=== PATIENT | male | born 1965 | race Caucasian/White ===

== ENCOUNTER → 2021-12-13 07:58 | Outpatient (BNVA) | payer BC, SELFPAY | PROVIDERS: Family Provider Family Medicine; PCP Family Medicine Adult Medicine; Visit Provider Family Medicine Adult Medicine | DX: M10.9 Gout, unspecified (principal); M79.671 Pain in right foot; E66.01 Morbid (severe) obesity due to excess calories; R03.0 Elevated blood-pressure reading, without diagnosis of hypertension | CPT/HCPCS: 80053; 84550 ==

== ENCOUNTER → 2023-02-26 08:27 | Outpatient (BNVA) | payer OTHER, SELFPAY | PROVIDERS: Family Provider Family Medicine; PCP Family Medicine Adult Medicine; Visit Provider Family Medicine Adult Medicine | DX: I95.1 Orthostatic hypotension (principal) | CPT/HCPCS: 80061 ==

== ENCOUNTER 2023-02-27 07:50 | Outpatient (CLI) | payer OTHER, SELFPAY ==
--- NOTE | 2023-02-27 08:00 | USCV_ITS ---
Olman Starr Age: 57 Gender: M : 1965 Exam Date: 02/27/2023 08:24 Ordering Phys: Pedro Cabrera MD Technologist: GUILLERMO Exam Location: [facility] – [place], [place] Indication: Vertigo after standing, climbing, exertion Risk Factors: Previous Vascular Surgery: Right Brachial BP: / Left Brachial BP: / Right Left Velocity (cm/s) Spectral Plaque Velocity (cm/s) Spectral Plaque Syst/Diast Broadening Syst/Diast Broadening 100.60/16.80 Prox CCA 98.30 / 22.20 98.60/ 18.70 Mid CCA 94.00 / 23.10 84.80/ 24.60 Distal CCA 82.00 / 23.10 77.70/ 17.40 Prox ICA 48.90 / 19.90 74.60/ 21.50 Mid ICA 65.20 / 22.90 64.40/ 24.50 Distal ICA 62.80 / 27.10 137.50 ECA 85.40 0.77 ICA/CCA 0.66 Antegrade Vertebral Antegrade 59.00/ 15.50 cm/s 44.90/ 15.00 cm/s Tri Subclavian Tri 90.40 79.90 CONCLUSIONS Right ICA stenosis <50%. Left ICA stenosis <50%. Normal antegrade Doppler flow noted in the right vertebral artery. Normal antegrade Doppler flow noted in the left vertebral artery. Zachary Cobos MD (Electronically Signed) Final Date: 27 Feb 2023 13:01 S
== END 2023-02-27 07:51 | disposition home or self-care (01) ==
PROVIDERS: PCP Family Medicine Adult Medicine; Visit Provider Family Medicine Adult Medicine
DX: I65.23 Occlusion and stenosis of bilateral carotid arteries (principal)
CPT/HCPCS: 93880

== ENCOUNTER → 2024-08-17 13:15 | Outpatient (BNVA) | payer OTHER, SELFPAY | PROVIDERS: PCP Family Medicine Adult Medicine | DX: E66.01 Morbid (severe) obesity due to excess calories (principal) | CPT/HCPCS: 80053; 83880; 85025 ==

== ENCOUNTER → 2025-01-14 09:13 | Outpatient (BNVA) | payer OTHER, SELFPAY | PROVIDERS: PCP Family Medicine; Visit Provider Family Medicine | DX: E78.5 Hyperlipidemia, unspecified (principal); R73.9 Hyperglycemia, unspecified; R35.1 Nocturia; R68.82 Decreased libido | CPT/HCPCS: 80053; 80061; 83036; 84153; 84403 ==

== ENCOUNTER 2025-03-09 13:04 | Outpatient (CLI) | payer OTHER, SELFPAY | END 2025-03-09 13:05 | disposition home or self-care (01) | LOC: SLEEP 13:05 | PROVIDERS: PCP Family Medicine; Referring Provider Family Medicine; Visit Provider Internal Medicine Pulmonary Disease | DX: G47.33 Obstructive sleep apnea (adult) (pediatric) (principal); G47.36 Sleep related hypoventilation in conditions classified elsewhere | CPT/HCPCS: G0399 ==

== ENCOUNTER → 2025-05-04 08:33 | Outpatient (BNVA) | payer OTHER, SELFPAY | PROVIDERS: PCP Family Medicine; Visit Provider Family Medicine | DX: E11.9 Type 2 diabetes mellitus without complications (principal); R79.89 Other specified abnormal findings of blood chemistry | CPT/HCPCS: 80053; 83036; 84403; 85025 ==

== ENCOUNTER → 2025-07-29 08:38 | Outpatient (BNVA) | payer OTHER, SELFPAY | PROVIDERS: PCP Family Medicine; Visit Provider Family Medicine | DX: E11.9 Type 2 diabetes mellitus without complications (principal) | CPT/HCPCS: 80048; 82043; 83036 ==

== ENCOUNTER 2025-08-26 07:42 | Day surgery (SDC) | payer OTHER, SELFPAY ==
[2025-08-26 08:01] VITALS: BMI 41.5
[2025-08-26 08:09] VITALS: BP 134/94; PULSE 84; RESP 18; TEMP 36.4; O2SAT 97
--- NOTE | 2025-08-26 08:51 | P.HPUD_ITS ---
Surgery/Procedure H&P Update DATE OF PROCEDURE: August 26, 2025 DATE H&P PERFORMED: 08/11/25 H&P UPDATE INFORMATION: I have reviewed H&P completed within last 30 days, I have examined patient prior to procedure, No changes to prior documentation, H&P is in [facility] EMR on date indicated and Risks and benefits of the procedure reviewed PLANNED PROCEDURE: Operation Date: 08/26/25 09:30 Proposed Procedures p Colonoscopy 22807 G0121 Z12.11(Not Applicable) - Anthony Sage MD
--- NOTE | 2025-08-26 09:02 | ANES.PREANE2 ---
Pre-Anesthetic Assessment Height/Weight: Height 1.85 m Weight 142.882 kg Temp Pulse Resp BP Pulse Ox 97.5 F L 84 18 134/94 97 08/26/25 08:09 08/26/25 08:09 08/26/25 08:09 08/26/25 08:09 08/26/25 08:09 Preop Diagnosis: screening Operation Date: 08/26/25 09:30 Proposed Procedures p Colonoscopy [id number] G0121 Z12.11(Not Applicable) - Anthony Sage MD Familial anesthetic complications: none Was Beta Beata taken within 24 hours: N/A Was Clonidine taken within 24 hours: N/A Last intake: Intake Last Liquid Date 08/25/25 Last Liquid Time 20:30 Last Solid Date 08/24/25 Last Solid Time 18:00 Social Alcohol (1/2 of a fifth on the weekends) and No tobacco Exam alert and oriented x 3 Airway Submandibular: within normal limits Cervical ROM: within normal limits Mallampati: Class I Dentition: chipped, loose (back top) and full History/ROS No significant history except as noted Pulmonary Sleep Apnea (does not wear cpap) CV/HEM Hypertension None reported Hepatic None reported GI None reported Metabolic Diabetes Mellitus, Hyperlipidemia and Morbid Obesity [facility] [place] None reported Neuropsych None reported Anesthetic Plan ASA status: 3 Anesthesia: Anesthesia Evaluation and MAC Medications/Allergies Home Medications ?Medication ?Instructions ?Recorded ?Confirmed ?Last Taken ?Type indomethacin 75 mg See Rx Instructions .Route 01/11/22 08/23/25 Unknown Rx capsule,extended release .COMPLEX #180 caps aspirin 81 mg tablet,delayed 81 mg PO DAILY 02/26/23 08/23/25 08/25/25 History release multivitamin 1 tab PO DAILY 02/26/23 08/23/25 08/25/25 History docosahexaenoic acid (dha)-epa 120 1 cap PO DAILY 02/19/25 08/23/25 08/25/25 History mg-180 mg capsule (Fish Oil) magnesium 250 mg tablet 250 mg PO DAILY 02/19/25 08/23/25 08/23/25 History Auto Titrating CPAP set to 6-16 #1 ea 03/18/25 08/13/25 Unknown Rx with mask and supplies 3ml Syringes with needle #24 ea 04/05/25 08/13/25 Unknown Rx atorvastatin 40 mg tablet 40 mg PO DAILY #90 tabs 04/27/25 08/23/25 08/25/25 Rx bupropion HCl 150 mg 24 hr tablet, 150 mg PO QAM #90 tabs 07/29/25 08/23/25 08/25/25 Rx extended release (Wellbutrin XL) meloxicam 15 mg tablet 15 mg PO DAILY #90 tabs 07/29/25 08/23/25 08/25/25 Rx metformin 500 mg tablet,extended 500 mg PO BID #180 tabs 07/30/25 08/23/25 08/25/25 Rx release 24 hr (Glucophage XR) allopurinol 300 mg tablet 300 mg PO DAILY 08/23/25 08/23/25 08/25/25 History lisinopril 20 1 tab PO DAILY 08/23/25 08/23/25 08/25/25 History mg-hydrochlorothiazide 12.5 mg tablet (Zestoretic) semaglutide 0.25 mg or 0.5 mg (2 0.5 mg SUBCUT .WEEKLY 08/23/25 08/23/25 08/16/25 History mg/3 mL) subcutaneous pen injector (Ozempic) Allergies Allergy/AdvReac Type Severity Reaction Status Date / Time No Known Allergies Allergy Verified 08/26/25 07:56 Current Medications Generic Name Dose Route Start Last Admin Trade Name Freq PRN Reason Stop Dose Admin Sodium Chloride 1,000 mls @ 15 mls/hr 08/26/25 08:06 08/26/25 08:07 Sodium Chloride 0.9% IV 08/27/25 08:05 15 mls/hr .Q24H PRN Administration COLONOSCOPY FLUIDS PFSH Anesthesia Medical History Cellulitis of left lower extremity Lumbosacral strain Chronic pain of left knee Dyslipidemia (high LDL; low HDL) Cerebellar dysmetria Lack of coordination Orthostatic hypotension Gout Synovial cyst of popliteal space [Jara], left knee Elevated BP without diagnosis of hypertension Morbid obesity Social History Smoking and tobacco/nicotine status: former use of tobacco/nicotine Alcohol intake: current Alcohol intake frequency: few times a week Substance/Drug Use: never Marital status: Current occupational status: employed
[2025-08-26 09:29] VITALS: BP 111/77; PULSE 77; RESP 18; TEMP 36.6; O2SAT 94
[2025-08-26 09:46] VITALS: BP 119/72; PULSE 80; RESP 18; O2SAT 98
--- NOTE | 2025-08-26 09:56 | ANE.PACU2 ---
Inpatient post-anesthesia follow up: Airway intact: Yes Vital signs: Temperature 97.8 F Pulse Rate 80 Respiratory Rate 18 Blood Pressure 119/72 Pulse Oximetry 98 Oxygen Delivery Me thod Room Air Oxygen Flow Rate Fraction of Inspir ed Oxygen Hydration adequate: Yes Nausea and vomiting: No Pain level: 1 Mental status: Baseline
== END 2025-08-26 09:56 | disposition home or self-care (01) ==
PROVIDERS: PCP Family Medicine; Visit Provider Surgery
PROC: 0DJD8ZZ Inspection of Lower Intestinal Tract, Via Natural or Artificial Opening Endoscopic (ICD-10-PCS; CPT 45378; principal; 2025-08-26 09:30)
DX: Z12.11 Encounter for screening for malignant neoplasm of colon (principal); K57.30 Diverticulosis of large intestine without perforation or abscess without bleeding; Z79.82 Long term (current) use of aspirin; Z79.84 Long term (current) use of oral hypoglycemic drugs; E78.5 Hyperlipidemia, unspecified; E66.01 Morbid (severe) obesity due to excess calories; Z68.41 Body mass index [BMI] 40.0-44.9, adult; Z87.891 Personal history of nicotine dependence; I10 Essential (primary) hypertension; G47.30 Sleep apnea, unspecified
CPT/HCPCS: 36416; 45378; 82962; J2704; J3010; J3490; J7030